=== PATIENT | female | born 1990 | race African-American/Black ===

== ENCOUNTER → 2017-01-15 | Day surgery (SDC) | payer OTHER ==
[~2017-01-15] MED LIST: Acetaminophen 500 MG TAB PO SCH
[2017-01-15 11:27] LABS: Bilirubin Negative (Negative); Blood, Urine Moderate (Negative); Glucose, Urine (Dipstick) Negative (Negative); Ketone, Urine Negative (Negative); Nitrite Negative (Negative); Protein, Urine (Dipstick) 30 mg/dL (Neg-Trace); Urobilinogen 0.2 mg/dL (0.2-1.0)
[2017-01-15 11:31] LABS: Bacteria/HPF 1+ HPF (None Seen); Hyaline Casts/LPF 0-3 HYALINE CAST LPF (0-3 Hyaline); Squamous Epithelial 0-3 HPF (0-3)
[2017-01-15 11:39] LABS: Amnisure Test No Membranes Rupture (No Rupture)
--- NOTE | 2017-01-15 16:05 | PRG ---
DATE OF SERVICE: 01/15/2017 OB ER ENCOUNTER PRIMARY OB: Dr. Vu Richard. CHIEF COMPLAINT: Abdominal pain. HISTORY OF PRESENT ILLNESS: Patient is a 26-year-old G6, P4 female with an intrauterine at 29 weeks and a day of di/di twin gestation. She reports that she has been having [place] contractions for quite sometime now, but was worried because since yesterday she has been having severe pain in her abdomen and lower pelvis and has come in for evaluation. The patient reports that the pain is sharp and she reports it is worse with movement, getting out of bed and walking and lifting things and she feels that in her vaginal area and also in her upper sides of her abdomen. The patient denies any vaginal bleeding, but she does report she has been having leaking fluid for several weeks which she has been told in the past has been likely urinary incontinence. The patient denies any urinary urgency or change in odor. She does report she had sex last night and denies any worsening of her symptoms since then. The patient reports she sees [facility] in conjunction with Dr. Vu Richard. She also reports that she has been spilling protein in her urine, but denies any other problems. PAST MEDICAL HISTORY: Asthma for which she has not needed medications. Depression. ALLERGIES: Seasonal allergies for which she takes cetirizine. SULFA drugs. PAST SURGICAL HISTORY: Noncontributory. SOCIAL HISTORY: She has had gonorrhea, had chlamydia and Trichomonas with this , which has been treated. Positive results of chlamydia and Trichomonas were prior to the . OBSTETRIC HISTORY: She has had 4 term deliveries, uncomplicated. OB LABORATORY DATA: Blood type is O positive, antibody screen is negative. RPR is nonreactive in the first trimester. HIV is nonreactive in the first trimester. Hepatitis B surface antigen is negative. She is rubella immune. GC and chlamydia are negative. REVIEW OF SYSTEMS: Patient denies any fever, illness, headache, chest pain, shortness of breath, nausea, vomiting, diarrhea, or constipation. She denies any new rashes, denies any hip problems, knee problems or muscle weakness. She has the abdominal and pelvic pains as described in HPI. Denies vaginal bleeding , but does report this leakage of fluid. Denies any urinary urgency. PHYSICAL EXAMINATION: VITAL SIGNS: Blood pressure is 130/73, heart rate of 84, respiratory rate of 16 , satting 100% on room air and temperature is 98.3. GENERAL: She appears to be in no acute distress. She is alert and oriented, and cooperative and pleasant to interact with. HEAD: Normocephalic, atraumatic. LUNGS: Clear to auscultation bilaterally. HEART: Has a regular rate and rhythm. ABDOMEN: Soft. She does have tenderness bilaterally in the region of insertion of her round ligament into the fundus of the uterus or cornual region of the uterus. She also has tenderness in the lower pelvis area, suprapubic area. EXTREMITIES: Have some minimal edema pretibially. PELVIC: Vulva is without masses, lesions or erythema. Vagina is moist with an exudate with foam. Cervix is visually closed. No bleeding visible. AmniSure was collected as well as a UNION ORGANIZER-3 and GC and chlamydia. Cervix was closed on digital bimanual inspection, thick and high. LABORATORY DATA: UA was collected showing 1+ protein, moderate blood, trace leukocyte esterase, negative nitrites, 4-6 white blood cells, 1+ bacteria, 0-3 squamous cells. UNION ORGANIZER-3 is pending and GC chlamydia is pending. ASSESSMENT AND PLAN: The patient is a 26-year-old female with di/di twin gestation at 29 weeks who is likely having musculoskeletal pain. There is no evidence of labor at this time. She does appeared to have a urinary tract infection for which we have given her a prescription of Macrobid 100 mg to be taken twice daily for the next week, pending is the UNION [employer]GANIZER-3 and GC chlamydia. The patient has reassuring heart tracing on both babies. She is scheduled to see Dr. Vu Richard tomorrow. The patient will be discharged to home with labor precautions. She has been given instructions to give us a call back in an hour or 2 to share the results of her UNION ORGANIZER-3 to see if she needs any more treatment. Results for VP3 is + for BV. WIll need flagyl. GC/CT pending. Dr Richard has been notified and will provide rx today [facility]
== END | disposition home or self-care (01) ==
LOC: L&D/OP 09:33
PROVIDERS: ATTEND Family Medicine
DX: O47.03 False labor before 37 completed weeks of gestation, third trimester (principal); O30.043 Twin pregnancy, dichorionic/diamniotic, third trimester; O99.89 Other specified diseases and conditions complicating pregnancy, childbirth and the puerperium; J45.909 Unspecified asthma, uncomplicated; O99.343 Other mental disorders complicating pregnancy, third trimester; F32.9 Major depressive disorder, single episode, unspecified; Z3A.29 29 weeks gestation of pregnancy; Z79.899 Other long term (current) drug therapy; Z88.2 Allergy status to sulfonamides; Z91.018 Allergy to other foods; Z87.891 Personal history of nicotine dependence; Z86.19 Personal history of other infectious and parasitic diseases
CPT/HCPCS: 81003; 81015; 84112; 87480; 87491; 87510; 87591; 87660

== ENCOUNTER 2017-02-07 15:35 | Day surgery (SDC) | payer OTHER ==
[2017-02-07 16:43] VITALS: BMI 39.1
--- NOTE | 2017-02-07 17:20 | PDOC.LDHP ---
Labor and Delivery H&P Chief complaint: other (spotting) HPI: 26 y/o at 32w3d, patient of Dr. Richard (but switching to [facility]), presents with spotting yesterday. She reports she had a pop and then had spotting when she wiped but it has since resolved. Denies any contractions, LOF, or decreased FM. ROS neg for HEENT, cv, pulm, gi, gu, neuro, psych, skin, musculoskeletal, or constitutional symptoms other than mentioned above. OB History Details: 4 prior term c/s Current complications: di/di twins Past Medical History: Asthma Current medications: pre- vitamins Previous surgical history: low tranverse CS Allergies/Adverse Reactions: Allergies Allergy/AdvReac Type Severity Reaction Status Date / Time Sulfa (Sulfonamide Allergy Anaphylaxis Verified 02/07/17 16:40 Antibiotics) COCONUT Allergy Hives Uncoded 02/07/17 16:41 Social history: none - Physical Exam Vital signs reviewed and normal: yes General: NAD, resting Lungs: nonlabored breathing Abdomen: gravid Extremeties: no edema FHT: category 1 (x2) - Assessment 26 y/o at 32w3d with spotting that has resolved. status reassuring with reactive NST and normal DEEPAK x 2. - Plan -: D/c home with precautions. Advised to keep all appointments. First appointment with [facility] on 02/13.
== END 2017-02-07 17:20 | disposition home or self-care (01) ==
LOC: L&D/OP 15:35
PROVIDERS: ATTEND Family Medicine
DX: O26.853 Spotting complicating pregnancy, third trimester (principal); O99.513 Diseases of the respiratory system complicating pregnancy, third trimester; J45.909 Unspecified asthma, uncomplicated; Z88.2 Allergy status to sulfonamides; Z91.018 Allergy to other foods; Z79.899 Other long term (current) drug therapy; Z98.891 History of uterine scar from previous surgery; Z87.891 Personal history of nicotine dependence; Z3A.32 32 weeks gestation of pregnancy
CPT/HCPCS: 59025; 76815

== ENCOUNTER 2017-07-11 16:48 | Emergency (ER) | payer OTHER, SELFPAY ==
[2017-07-11 17:28] LABS: Bilirubin Negative (Negative); Blood, Urine Negative (Negative); Clarity CLEAR (Clear); Glucose, Urine (Dipstick) Negative (Negative); Leukocyte Negative (Negative); Nitrite Negative (Negative); Protein, Urine (Dipstick) 30 mg/dL (Neg-Trace); Specific Gravity, Urine 1.029 (1.002-1.036); Urobilinogen 0.2 mg/dL (0.2-1.0); pH, Urine 6.5 (5.0-9.0)
[2017-07-11 17:31] LABS: Bacteria/HPF None Seen HPF (None Seen); Hyaline Casts/LPF 0-3 HYALINE CAST LPF (0-3 Hyaline); Pathc Cast-AUWi Flag 0.29 (0-2.49); Squamous Epithelial 0-3 HPF (0-3); WBC/HPF None Seen HPF (0-3)
[2017-07-11 17:42] LABS: RBC/HPF 0-3 HPF (0-3)
[2017-07-11 17:43] LABS: #Basophils 0.1 thou/uL (0.0-0.2); #Eosinphils 0.2 thou/uL (0.0-0.7); #Lymphocytes 3.1 thou/uL (1.20-3.40); #Monocytes 0.5 thou/uL (0.11-0.59); %Eosinophils 2.1 % (0.0-10.0); %Lymphocytes 39.3 % (21.0-51.0); %Monocytes 6.7 % (0.0-10.0); %Neutrophils 50.9 % (42.0-75.0); Mean Corpuscular HGB CONC 33.7 g/dL (32.0-36.0); Mean Corpuscular Hemoglobin 30.3 pg (27.0-31.0); Mean Corpuscular Volume 89.7 fl (81.0-99.0); Mean Platelet Volume 7.5 fL (7.4-10.4); Platelet Count 293 thou/uL (130-400); RBC Distribution Width 15.1 % (11.5-14.5); Red Blood Cell (RBC) Count 3.95 mill/uL (4.20-5.40); White Blood Cell (WBC) Count 7.9 thou/uL (4.8-10.8)
[2017-07-11 18:09] LABS: ALT (SGPT) 13 U/L (8-55); AST (SGOT) 14 U/L (5-34); Albumin 4.1 g/dL (3.5-5.0); Alkaline Phosphatase 70 U/L (40-150); Anion Gap 9 mmol/L (10-20); BUN (Urea Nitrogen) 13 mg/dL (7.0-18.7); Bilirubin, Total 0.5 mg/dL (0.2-1.2); Calc. Creatinine Clearance 0 mL/min (70-130); Calcium 9.8 mg/dL (7.8-10.44); Carbon Dioxide 27 mmol/L (22-29); Chloride 107 mmol/L (98-107); Estimated GFR-MDRD Greater than 90; Globulin 3.1 g/dL (2.4-3.5); Glucose 89 mg/dL (70-105); Protein, Total 7.2 g/dL (6.0-8.3); Sodium 139 mmol/L (136-145)
[2017-07-11 20:04] LABS: BHCG - Serum Negative (NEGATIVE); Pregs Control Background? CLEAR/WHITE (CLR/WHITE); Pregs Control Bar Appear? YES (CONTROL BAR)
[2017-07-11] MEDS ORDERED: Ketorolac Tromethamine 60 MG/2 ML VIAL ONE (21:09)
[2017-07-11] MEDS ORDERED: Ondansetron ODT 4 MG TAB ONE (21:09)
[2017-07-11] MEDS ORDERED: cefTRIAXone\\ROCEPHIN 250 MG VIAL ONE (21:47)
[2017-07-11] MEDS ORDERED: Lidocaine 1% (PF) 30 ML VIAL ONE (21:48)
[2017-07-11] MEDS ORDERED: Lidocaine 1% PF 5 ML VIAL ONE (21:50)
[2017-07-11] MEDS ORDERED: Doxycycline 100 MG CAP PO SCH (22:00)
--- NOTE | 2017-07-11 23:04 | ULT ---
PELVIC ULTRASOUND INCLUDING TRANSABDOMINAL AND TRANSVAGINAL AND VASCULAR DUPLEX WITH COLOR AND SPECTR AL DOPPLER IMAGIN07/11/17 HISTORY: 27-year-old female with history of pelvic pain and recent . The uterus measures 10.5 x 4.0 x 5.0 cm with an endometrium of 1.4 cm. The right ovary measures 2.8 x 3.9 x 4.1 cm and contains follicle cysts at 1.5 x 2.2 cm. The left ovary measures 1.8 x 2.8 x 2.9 cm . Trace free fluid in the cul-de-sac. Vascular duplex and color and spectral doppler imaging to both ovaries demonstrate no evidence for ov jackie torsion. IMPRESSION: Somewhat thickened endometrium. Small right ovarian follicle cyst. No abscess or other significant ac [place] process. POS: SUNNY
== END 2017-07-11 23:17 | disposition home or self-care (01) ==
LOC: ERS 16:48
DX: N73.9 Female pelvic inflammatory disease, unspecified (principal); J45.909 Unspecified asthma, uncomplicated; F41.9 Anxiety disorder, unspecified
CPT/HCPCS: 36415; 76856; 80053; 81003; 81015; 84703; 85025; 87480; 87491; 87510; 87591; 87660; 96372; J0696; J1885; J2001; Q0162

== ENCOUNTER 2018-03-25 20:35 | Emergency (ER) | payer SELFPAY | END 2018-03-25 22:18 | disposition home or self-care (01) | LOC: ERS 20:35 | DX: R11.2 Nausea with vomiting, unspecified (principal); F17.210 Nicotine dependence, cigarettes, uncomplicated; F41.9 Anxiety disorder, unspecified; J45.909 Unspecified asthma, uncomplicated; Z79.899 Other long term (current) drug therapy | CPT/HCPCS: 99283 ==

== ENCOUNTER 2018-06-21 01:51 | Emergency (ER) | payer SELFPAY ==
[2018-06-21] MEDS ORDERED: Metoclopramide HCl 10 MG/2 ML VIAL ONE (02:29)
[2018-06-21] MEDS ORDERED: diphenhydrAMINE 50 MG/ML VIAL ONE (02:29)
[2018-06-21] MEDS ORDERED: Ketorolac Tromethamine 30 MG/ML VIAL ONE (02:29)
--- NOTE | 2018-06-21 07:43 | CT ---
PRELIMINARY REPORT/[facility]/EMERGENTY AFTER-HOURS PROCEDURE CT Head Without Contrast EXAM DATE/TIME: 06/21/2018 2:33 AM CLINICAL HISTORY: 28 years old, female; Pain; Headache; Patient HX: PT reports SULTANA onset around 19: 00, has HX of has bu t this is different. She "heard a pop in her head and had a panic attack. 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 COMPARISON: No relevant prior studies available. FINDINGS: Brain: Normal. Ventricles: Normal. Bones/joints: Normal. Sinuses: Normal as visualized. Mastoid air cells: Normal as visualized. Soft tissues: Unremarkable. IMPRESSION: No acute intracranial abnormality. Thank you for allowing us to participate in the care of your patient. Dictated and Authenticated by: Robert Tate MD 06/21/2018 4:20 AM Central Time ([place] & [place]) FINAL REPORT EMERGENT AFTER HOURS STUDY CT BRAIN NONCONTRAST: HISTORY: 28-YEAR-OLD FEMALE WITH HEADACHE. FINDINGS: There is no midline shift or any other mass effect. There is no evidence of acute intracranial hemor rhage, large cortical infarct, obstructive hydrocephalus, or extraaxial fluid collection. The calvar ium is intact. This report agrees with preliminary report by [facility]. IMPRESSION: No acute intracranial findings. jn [] POS: SUNNY
== END 2018-06-21 05:04 | disposition home or self-care (01) ==
LOC: ERS 01:51
DX: R51 Headache (principal); Z71.6 Tobacco abuse counseling; J45.909 Unspecified asthma, uncomplicated; F41.9 Anxiety disorder, unspecified; F17.210 Nicotine dependence, cigarettes, uncomplicated
CPT/HCPCS: 70450; 96365; 96375; 99406; J1200; J1885; J2765

== ENCOUNTER 2018-10-22 16:36 | Emergency (ER) | payer SELFPAY ==
--- NOTE | 2018-10-22 18:06 | RAD ---
EXAM: Portable chest PROVIDED CLINICAL HISTORY: Chest pain COMPARISON: 12/10/2014 FINDINGS: Cardiac and mediastinal silhouette is within normal limits. No focal consolidation, pleural fluid or pneumothorax evident. IMPRESSION: No evidence for an acute cardiopulmonary process.
[2018-10-22 18:29] LABS: #Eosinphils 0.2 thou/uL (0.0-0.7); #Lymphocytes 2.4 thou/uL (1.20-3.40); #Monocytes 0.4 thou/uL (0.11-0.59); #Neutrophils 3.2 thou/uL (1.40-6.50); %Basophils 0.6 % (0.0-1.0); %Eosinophils 2.6 % (0.0-10.0); %Lymphocytes 38.3 % (21.0-51.0); %Monocytes 5.9 % (0.0-10.0); %Neutrophils 52.6 % (42.0-75.0); Hemoglobin 11.2 g/dL (12.0-16.0); Mean Corpuscular HGB CONC 32.9 g/dL (32.0-36.0); Mean Corpuscular Hemoglobin 30.9 pg (27.0-31.0); Mean Corpuscular Volume 93.9 fL (78.0-98.0); Mean Platelet Volume 8.6 fL (7.4-10.4); Platelet Count 270 thou/uL (130-400); RBC Distribution Width 12.6 % (11.5-14.5); Red Blood Cell (RBC) Count 3.64 mill/uL (4.20-5.40); White Blood Cell (WBC) Count 6.2 thou/uL (4.8-10.8)
[2018-10-22 18:55] LABS: ALT (SGPT) 11 U/L (8-55); AST (SGOT) 15 U/L (5-34); Albumin 4.1 g/dL (3.5-5.0); Alkaline Phosphatase 57 U/L (40-150); Anion Gap 10 mmol/L (10-20); BUN (Urea Nitrogen) 11 mg/dL (7.0-18.7); Bilirubin, Total 0.4 mg/dL (0.2-1.2); Calc. Creatinine Clearance 0 mL/min (70-130); Calcium 9.4 mg/dL (7.8-10.44); Carbon Dioxide 24 mmol/L (22-29); Chloride 106 mmol/L (98-107); Estimated GFR-MDRD Greater than 90; Globulin 2.8 g/dL (2.4-3.5); Glucose 91 mg/dL (70-105); Lipase 28 U/L (8-78); Potassium 3.8 mmol/L (3.5-5.1); Protein, Total 6.9 g/dL (6.0-8.3); Sodium 136 mmol/L (136-145)
[2018-10-22] MEDS ORDERED: Lidocaine Viscous Sol 2% 15 ml UD Cup ONE (18:58)
[2018-10-22] MEDS ORDERED: Mag-Al 1200 mg/1200 mg/30 ML UDCUP ONE (18:58)
[2018-10-22 19:30] LABS: Bilirubin Negative (Negative); Blood, Urine Negative (Negative); Clarity Turbid (Clear); Glucose, Urine (Dipstick) Normal (Negative); Leukocyte Negative Leu/uL (Negative); Nitrite Negative (Negative); Protein, Urine (Dipstick) 10 mg/dL (Neg-Trace); Urobilinogen Normal mg/dL (Less than 2)
[2018-10-22 19:37] LABS: Pregnancy Test - Urine (BHCG) Negative (Negative); Pregu Control Background? CLEAR/WHITE (CLR/WHITE); Pregu Control Bar Appear? YES (CONTROL BAR); Specific Gravity 1.022 (1.002-1.036)
== END 2018-10-22 20:25 | disposition home or self-care (01) ==
LOC: ERS 16:36
DX: K27.9 Peptic ulcer, site unspecified, unspecified as acute or chronic, without hemorrhage or perforation (principal); R06.00 Dyspnea, unspecified; J45.909 Unspecified asthma, uncomplicated; F17.210 Nicotine dependence, cigarettes, uncomplicated
CPT/HCPCS: 36415; 71045; 80053; 81003; 81025; 83690; 84443; 85025; 93005

== ENCOUNTER 2018-12-15 16:41 | Emergency (ER) | payer SELFPAY ==
[2018-12-15] MEDS ORDERED: Ketorolac Tromethamine 60 MG/2 ML VIAL ONE (17:17)
--- NOTE | 2018-12-15 17:24 | RAD ---
EXAM: 3 views of the left ankle HISTORY: Ankle pain COMPARISON: None FINDINGS: 3 views of the left ankle shows no evidence of acute fracture or dislocation. Moderate diff use soft tissue swelling is seen. No degenerative changes are present. IMPRESSION: No evidence of acute osseous abnormality.
== END 2018-12-15 18:00 | disposition home or self-care (01) ==
LOC: ERS 16:41
DX: S93.402A Sprain of unspecified ligament of left ankle, initial encounter (principal); J45.909 Unspecified asthma, uncomplicated; F41.9 Anxiety disorder, unspecified; F31.9 Bipolar disorder, unspecified; F17.210 Nicotine dependence, cigarettes, uncomplicated; Z79.899 Other long term (current) drug therapy; X50.9XXA Other and unspecified overexertion or strenuous movements or postures, initial encounter
CPT/HCPCS: 29515; 96372; J1885

== ENCOUNTER 2019-02-05 23:04 | Emergency (ER) | payer SELFPAY ==
[2019-02-05] MEDS ORDERED: guaiFENesin ER 600 MG TAB PO SCH (23:59)
== END 2019-02-06 00:15 | disposition home or self-care (01) ==
LOC: ERS 23:04
DX: J20.9 Acute bronchitis, unspecified (principal); J45.909 Unspecified asthma, uncomplicated; Z79.899 Other long term (current) drug therapy
CPT/HCPCS: 87081; 87430; 87804; 99283

== ENCOUNTER 2019-02-25 05:07 | Emergency (ER) | payer SELFPAY ==
[2019-02-25] MEDS ORDERED: predniSONE 20 MG TAB ONE (05:37)
[2019-02-25] MEDS ORDERED: Albuterol Sulfate 2.5 mg/3 ml Neb ONE (05:39)
== END 2019-02-25 06:13 | disposition home or self-care (01) ==
LOC: ERS 05:07
DX: J45.901 Unspecified asthma with (acute) exacerbation (principal); J06.9 Acute upper respiratory infection, unspecified; F41.9 Anxiety disorder, unspecified; F31.9 Bipolar disorder, unspecified; F17.210 Nicotine dependence, cigarettes, uncomplicated; Z71.6 Tobacco abuse counseling; Z79.899 Other long term (current) drug therapy
CPT/HCPCS: 94640; J7512; J7611; J7620

== ENCOUNTER 2019-03-29 11:28 | Emergency (ER) | payer SELFPAY ==
[2019-03-29 11:55] LABS: #Basophils 0.1 thou/uL (0.0-0.2); #Eosinphils 0.1 thou/uL (0.0-0.7); #Lymphocytes 2.1 thou/uL (1.20-3.40); #Monocytes 0.3 thou/uL (0.11-0.59); #Neutrophils 2.1 thou/uL (1.40-6.50); %Basophils 1.5 % (0.0-1.0); %Eosinophils 2.1 % (0.0-10.0); %Lymphocytes 44.4 % (21.0-51.0); %Monocytes 6.8 % (0.0-10.0); %Neutrophils 45.2 % (42.0-75.0); Hemoglobin 11.8 g/dL (12.0-16.0); Mean Corpuscular HGB CONC 34.7 g/dL (32.0-36.0); Mean Corpuscular Volume 89.4 fL (78.0-98.0); Platelet Count 291 thou/uL (130-400); RBC Distribution Width 13.1 % (11.5-14.5); White Blood Cell (WBC) Count 4.7 thou/uL (4.8-10.8)
[2019-03-29 12:16] LABS: ALT (SGPT) 10 U/L (8-55); AST (SGOT) 12 U/L (5-34); Albumin 4.2 g/dL (3.5-5.0); Alkaline Phosphatase 65 U/L (40-110); Anion Gap 8 mmol/L (10-20); BUN (Urea Nitrogen) 10 mg/dL (7.0-18.7); Bilirubin, Total 0.8 mg/dL (0.2-1.2); Calc. Creatinine Clearance 0 mL/min (70-130); Calcium 9.2 mg/dL (7.8-10.44); Carbon Dioxide 27 mmol/L (22-29); Chloride 106 mmol/L (98-107); Estimated GFR-MDRD Greater than 90; Globulin 3.2 g/dL (2.4-3.5); Glucose 78 mg/dL (70-105); Lipase 27 U/L (8-78); Potassium 3.3 mmol/L (3.5-5.1); Protein, Total 7.4 g/dL (6.0-8.3); Sodium 138 mmol/L (136-145)
[2019-03-29 12:35] LABS: Bilirubin Negative (Negative); Blood, Urine Trace (Negative); Clarity Turbid (Clear); Glucose, Urine (Dipstick) Normal (Negative); Leukocyte 75 Leu/uL (Negative); Nitrite Negative (Negative); Protein, Urine (Dipstick) 50 mg/dL (Neg-Trace); Urobilinogen Normal mg/dL (Less than 2); WBC/HPF 0-3 HPF (0-3)
[2019-03-29 12:36] LABS: Bacteria/HPF 1+ HPF (None Seen)
[2019-03-29 13:37] LABS: Pregnancy Test - Urine (BHCG) Negative (Negative); Pregu Control Background? CLEAR/WHITE (CLR/WHITE); Pregu Control Bar Appear? YES (CONTROL BAR); Specific Gravity 1.036 (1.002-1.036)
== END 2019-03-29 13:09 | disposition home or self-care (01) ==
LOC: ERS 11:28
DX: R10.12 Left upper quadrant pain (principal); J45.909 Unspecified asthma, uncomplicated; F41.9 Anxiety disorder, unspecified; F31.9 Bipolar disorder, unspecified; F17.210 Nicotine dependence, cigarettes, uncomplicated
CPT/HCPCS: 36415; 80053; 81003; 81015; 81025; 83690; 85025; 99284

== ENCOUNTER 2019-10-28 18:56 | Emergency (ER) | payer SELFPAY ==
[2019-10-28] MEDS ORDERED: Mag-Al 1200 mg/1200 mg/30 ML UDCUP ONE (19:35)
[2019-10-28] MEDS ORDERED: Famotidine 20 MG TAB ONE (19:35)
[2019-10-28] MEDS ORDERED: Lidocaine Viscous Sol 2% 15 ml UD Cup ONE (19:35)
[2019-10-28 19:39] LABS: #Basophils 0.1 thou/uL (0.0-0.2); #Eosinphils 0.2 thou/uL (0.0-0.7); #Lymphocytes 2.7 thou/uL (1.20-3.40); #Monocytes 0.5 thou/uL (0.11-0.59); #Neutrophils 4.1 thou/uL (1.40-6.50); %Basophils 1.1 % (0.0-1.0); %Eosinophils 2.2 % (0.0-10.0); %Lymphocytes 36.1 % (21.0-51.0); %Neutrophils 54.5 % (42.0-75.0); Hemoglobin 11.8 g/dL (12.0-16.0); Mean Corpuscular HGB CONC 33.6 g/dL (32.0-36.0); Mean Corpuscular Hemoglobin 31.7 pg (27.0-31.0); Mean Corpuscular Volume 94.5 fL (78.0-98.0); Mean Platelet Volume 8.5 fL (7.4-10.4); Platelet Count 272 thou/uL (130-400); RBC Distribution Width 12.3 % (11.5-14.5); White Blood Cell (WBC) Count 7.5 thou/uL (4.8-10.8)
[2019-10-28 19:41] LABS: Bacteria/HPF None Seen HPF (None Seen); Bilirubin Negative (Negative); Blood, Urine 1+ (Negative); Clarity Clear (Clear); Glucose, Urine (Dipstick) Normal (Negative); Ketone, Urine Negative (Negative); Leukocyte 75 Leu/uL (Negative); Nitrite Negative (Negative); Protein, Urine (Dipstick) 10 mg/dL (Neg-Trace); Squamous Epithelial 0-3 HPF (0-3); WBC/HPF 0-3 HPF (0-3); pH, Urine 6.5 (5.0-9.0)
[2019-10-28 20:01] LABS: ALT (SGPT) 11 U/L (8-55); AST (SGOT) 14 U/L (5-34); Albumin 3.9 g/dL (3.5-5.0); Alkaline Phosphatase 59 U/L (40-110); Anion Gap 11 mmol/L (10-20); BUN (Urea Nitrogen) 10 mg/dL (7.0-18.7); Bilirubin, Total 0.3 mg/dL (0.2-1.2); Calc. Creatinine Clearance 0 mL/min (70-130); Calcium 8.9 mg/dL (7.8-10.44); Carbon Dioxide 25 mmol/L (22-29); Chloride 105 mmol/L (98-107); Estimated GFR-MDRD 75; Glucose 87 mg/dL (70-105); Lipase 33 U/L (8-78); Potassium 3.4 mmol/L (3.5-5.1); Protein, Total 6.9 g/dL (6.0-8.3); Sodium 138 mmol/L (136-145)
[2019-10-28 20:15] LABS: BHCG - Serum Negative (NEGATIVE); Pregs Control Background? CLEAR/WHITE (CLR/WHITE); Pregs Control Bar Appear? YES (CONTROL BAR)
== END 2019-10-28 20:16 | disposition home or self-care (01) ==
LOC: ERS 18:56
DX: K29.70 Gastritis, unspecified, without bleeding (principal); J45.909 Unspecified asthma, uncomplicated; F31.9 Bipolar disorder, unspecified; F41.9 Anxiety disorder, unspecified; F43.10 Post-traumatic stress disorder, unspecified; F17.210 Nicotine dependence, cigarettes, uncomplicated
CPT/HCPCS: 36415; 80053; 81003; 81015; 83690; 84703; 85025; 99284